=== PATIENT | male | born 1995 | race African-American/Black ===

== ENCOUNTER 2016-12-30 20:12 | Emergency (ER) | payer SELFPAY ==
[~2016-12-30] VITALS: Ht 185.4 cm; Wt 84.0 kg
[2016-12-30] MEDS ORDERED: SODIUM CHLORIDE 0.9% 1,000 ML IV ONE (20:51)
[2016-12-30] MEDS ORDERED: ONDANSETRON HCL 4MG/2ML VIAL IV STA (20:51)
[2016-12-30] MEDS ORDERED: MORPHINE SULFATE 4 MG/ML CPJ (NOT FOR IM USE) IV STA (20:51)
[2016-12-30] MEDS ORDERED: CEFAZOLIN 1000MG PREMIX 50 ML IV ONE (21:00)
[2016-12-30] MEDS ORDERED: BACITRACIN ZINC OINT UDPKT TOP ONE (21:00)
[2016-12-30] MEDS ORDERED: TETANUS, DIPHTHERIA, PERTUSSIS VAC/PF 0.5ML (>7YR OLD) IM ONE (21:00)
[2016-12-30 21:26] LABS: BASOPHILS % 0.7 % (0.0-2.0); EOSINOPHILS % 2.5 % (0.0-5.0); HEMATOCRIT. 41.2 % (42.0-52.0); HEMOGLOBIN. 14.1 g/dL (14.0-18.0); LYMPHOCYTES % 30.7 % (20.0-50.0); MEAN CORPUSCULAR HEMOGLOBIN 31.3 pg (28.0-32.0); MEAN CORPUSCULAR HGB CONC 34.3 g/dL (31.0-37.0); MEAN CORPUSCULAR VOLUME 91.2 fL (80.0-94.0); MEAN PLATELET VOLUME 9.5 fl (7.4-10.4); MONOCYTES % 11.9 % (2.0-8.0); NEUTROPHILS % 54.2 % (40.0-76.0); PLATELET 247 x1000/uL (130-400); RED BLOOD CELL COUNT 4.52 mill/uL (4.7-6.1); RED CELL DISTRIBUTION WIDTH 13.2 % (11.6-14.6); WHITE BLOOD COUNT 8.8 x1000/uL (4.5-11.0)
[2016-12-30 21:31] LABS: PROTHROMBIN TIME 10.6 sec
[2016-12-30 21:38] LABS: ALANINE AMINOTRANSFERASE 35 IU/L (13-61); ALBUMIN 3.6 g/dL (3.4-5.0); ANION GAP 13; CALCIUM 8.6 mg/dL (8.5-10.1); CARBON DIOXIDE 27 mEq/L (21-32); CHLORIDE 105 mEq/L (98-107); INDEX HEMOLYSI 1 (1-3); INDEX ICTERIC 1 (1-4); INDEX LIPEMIC 1 (1-3); UREA NITROGEN BLOOD 16 mg/dL (7-21); eGFR > 60 mL/min (>60)
[2016-12-31 00:30] VITALS: BP 162/61
== END 2016-12-31 00:30 | disposition short-term general hospital (02) ==
LOC: ER 20:13
DX: S52.35 Comminuted fracture of shaft of radius (principal); F17.210 Nicotine dependence, cigarettes, uncomplicated; X93.XXXA Assault by handgun discharge, initial encounter; Y92.89 Other specified places as the place of occurrence of the external cause
CPT/HCPCS: 29125; 36415; 73090; 80053; 85025; 85610; 90471; 90715; 96365; 96366; 96375; 99291; J0690; J2270; J2405; J7030; Z7610; A4565